=== PATIENT | female | born 1965 | race Native Hawaiian/Other Pacific Islander ===

== ENCOUNTER 2022-01-18 10:29 | Emergency (ER) | payer OTHER ==
[~2022-01-18] VITALS: Ht 165.1 cm; Wt 72.6 kg
[2022-01-18] MEDS ORDERED: PENICILLIN VK250 MG PO (11:03)
[2022-01-18 11:04] VITALS: BP 119/70; TEMP 97.3
== END 2022-01-18 11:11 | disposition home or self-care (01) ==
LOC: ED 10:29
DX: K08.89 Other specified disorders of teeth and supporting structures (principal); K05.10 Chronic gingivitis, plaque induced; F17.210 Nicotine dependence, cigarettes, uncomplicated
CPT/HCPCS: 99281